=== PATIENT | male | born 1980 | race Caucasian/White ===

== ENCOUNTER 2022-11-21 12:34 | Outpatient (CLI) | payer OTHER, SELFPAY ==
--- NOTE | 2022-11-21 | ECHO_ITS ---
Patient Info Name: Patrick Cervantes Age: 42 years : 1980 Gender: Male Ht: 70 in Wt: 326 lbs BSA: 2.78 m2 HR: 112 bpm BP: 160 / 88 mmHg Heart Rhythm: Sinus Rhythm Technical Quality: Fair Exam Date: 11/21/2022 12:54 PM Exam Location: [facility] Patient Status: Outpatient Admit Date: 11/21/2022 Staff Ordering Physician: Ryley*Yuniel MD Airplane Tester: Radha Scott RDCS Attending Provider: Ryley*Yuniel MD Referring Physician: Amalia GARCIA; Exam Type: CA echo dop color flow w con Study Info Indications R06.02 - Shortness of breath Complete two-dimensional, color flow and Doppler transthoracic echocardiogram is performed with contrast to opacify the left ventricle and to improve the deliniation of the left ventricle endocardial borders. Strain analysis performed. Contrast/Agitated Saline Contrast/Ag. Saline: Definity Amount: 3.00 ml Administered By: Radha Scott RDCS Existing IV Access: Yes IV Access Condition: patent with no signs of infiltration Summary 1. Complete two-dimensional, color flow and Doppler transthoracic echocardiogram is performed with contrast to opacify the left ventricle and to improve the deliniation of the left ventricle endocardial borders. 2. Strain analysis performed. 3. Global longitudinal strain is borderline at -17 %. 4. Left ventricular chamber dimension is normal. 5. Left ventricular systolic function is hyperdynamic, estimated at >70%. 6. There is mildly increased left ventricular wall thickness. 7. The left ventricular diastolic function is grade I diastolic dysfunction. 8. There is mild tricuspid valve regurgitation. Left Ventricle Global longitudinal strain is borderline at -17 %. Left ventricular chamber dimension is normal. Left ventricular systolic function is hyperdynamic, estimated at >70%. There is mildly increased left ventricular wall thickness. The left ventricular diastolic function is grade I diastolic dysfunction. Right Ventricle Right ventricular chamber dimension is normal. Right ventricular systolic function is normal. Left Atria Left atrial chamber dimension is normal. Right Atria Right atrial chamber dimension is normal. Atrial Septum Intact interatrial septum visualized by color flow imaging. Aortic Valve The aortic valve is probable trileaflet. There is no aortic valve stenosis. There is trace aortic valve regurgitation. Pulmonic Valve The pulmonic valve is normal. There is no pulmonic valve stenosis. There is trace pulmonic regurgitation. Mitral Valve The mitral valve has normal leaflets. There is no mitral valve stenosis. There is trace mitral valve regurgitation. Tricuspid Valve The tricuspid valve leaflets are normal. There is no significant tricuspid valve stenosis. There is mild tricuspid valve regurgitation. No pulmonary hypertension, estimated pulmonary arterial systolic pressure is 25 mmHg. Pericardium/Pleural The pericardium appears normal. There is trivial pericardial effusion. Aorta The aortic root size at the sinus of Valsalva is normal. Left Ventricular Outflow Tract Name Value Normal LVOT 2D LVOT Diameter
[2022-11-21] MEDS: PERFLUTREN LIPID MICROSPHERES 1.5 ML VIAL DILUTED TO 10 ML TOTAL VOLUME IV PUSH (13:30)
--- NOTE | 2022-11-21 14:04 | IVDEFINITY ---
Prior to administration of IV Definity the patient was educated on the risks and benefits of the imaging enhancing agent including potential adverse side effects. The patient verbalized understanding. Allergies were verified. No exclusion criteria were identified and at least one of the following inclusion criteria were met: 1) physician request, 2) patient technically difficult to image (per the [place] [employer]ocardi[employer] guidelines of two or more segments not discernable within the apical view), or 3) questionable left ventricular function. ?
== END 2022-11-21 12:35 | disposition home or self-care (01) ==
PROVIDERS: Visit Provider Family Medicine
DX: R06.02 Shortness of breath (principal); R94.31 Abnormal electrocardiogram [ECG] [EKG]; I36.1 Nonrheumatic tricuspid (valve) insufficiency
CPT/HCPCS: C8929; Q9957

== ENCOUNTER 2023-12-06 12:05 | Outpatient (CLI) | payer OTHER, SELFPAY ==
--- NOTE | ~2023-12-06 | MM_ITS ---
EXAMINATION: MM diagnostic keila BI w kwaku HISTORY: Right subareolar breast pain, tenderness TECHNIQUE: MLO and CC 3-D tomosynthesis images of both breasts were performed and synthetic 2-D image s were generated. CAD analysis was submitted and interpreted. COMPARISON: None BREAST PARENCHYMAL COMPOSITION: There are scattered areas of fibroglandular density. FINDINGS: There is bilateral gynecomastia, right greater than left. No suspicious mass, architectural distortion, malignant calcification, skin thickening or retraction of either breast is detected. IMPRESSION: Bilateral gynecomastia, right greater than left, benign BI-RADS Category 2: Benign finding(s). Reviewed, dictated and finalized at location A. TESTING
== END 2023-12-06 12:06 | disposition home or self-care (01) ==
LOC: ANHIMG 12:07
PROVIDERS: PCP Family Medicine Sports Medicine; Visit Provider Family Medicine Sports Medicine
DX: N62 Hypertrophy of breast (principal)
CPT/HCPCS: 77062; 77066; 97110; 97530; G0279

== ENCOUNTER 2023-12-20 10:00 | Outpatient (RCR) | payer OTHER, SELFPAY ==
--- NOTE | 2023-10-04 09:57 | PTOPEVAL1 ---
Assessment and note entered by Penny Harris, PT, DPT Evaluation Information Assessment Status Evaluation Diagnosis low back pain Onset 3+ years Subjective Information Pt reports chronic low back pain, he states his pain starts any time he is on his feet for longer than 5-10 mins. He states it takes him sitting for 15-20 mins to get the pain to go away. He describes the pain as someone twisting and squeezing his spine. He declines a BHAVANI. He states all his pain is localized to the lower back. He declines any pain when sitting. Pt reports that lumbar hyperextension helps relieve his pain. Pt does not work. Reported Pain Level Pain Score 0: Self Report Assessment PT Clinical Summary Patrick presents to therapy today for his initial evaluation with a diagnosis of chronic low back pain. Today he demonstrates decreased active lumbar ROM during functional mobility tasks, decreased core strength, posterior deficits, and decreased functional mobility limited by pain. Skilled therapy services are indicated to improve body awareness, improve movement mechanics, and to improve functional mobility. Oswestry: 17/50, 34% disability Plan of Care Interventions Electrical Stimulation,Gait Training,Hot Pack/Cold Pack,Manual Therapy,Neuro Re-education,Patient/ Caregiver Educati,Therapeutic Activities, Therapeutic Exercise PT Services Indicated Yes Treatment Frequency and 2x/wk for 8 visits Duration These treatments will address the objective and functional deficits as defined above. The patient will be advanced safely and appropriately in order for the patient to progress towards his/her prior level of function. Additional exercises will be introduced and as well as a comprehensive home exercise program upon discharge, if needed, ?to ensure carryover of functional gains achieved in the clinic. This treatment plan has been reviewed and agreement upon by the patient.
--- NOTE | 2023-10-04 09:57 | OPREHPOC ---
Outpatient Therapy Plan of Care This is a Multidisciplinary Plan of Care that may contain components documented by all disciplines (PT, OT, and ST.) PT Problem 1 PT Problem #1 Knowledge Deficit PT Goal 1 Goal Pt to be IND with issued HEP Target Visit 8 PT Problem 2 PT Problem #2 Pain PT Goal 1 Goal Pt to report back pain no greater than 4/10 in the last week. Target Visit 8 PT Goal 2 Goal Pt to report 75% improvement in overall symptoms. Target Visit 8 PT Problem 3 PT Problem #3 Pain PT Goal 1 Goal Pt to tolerate 60 mins of standing prior to needing to sit down. Target Visit 8 PT Goal 2 Goal Pt to tolerate 15 mins of walking prior to needing to sit. Target Visit 8 PT Problem 4 PT Problem #4 Impaired Functional Mobil PT Goal 1 Goal Pt to improve Oswestry score from 17/50 to 10/50. PT Goal 2 Goal Pt to demonstrate functional lift and carry with 30lb. Target Visit 8
--- NOTE | 2023-10-11 12:02 | PCPTNOTE ---
Patient called to cancel this date due to illness.
--- NOTE | 2023-10-15 08:28 | PCPTNOTE ---
Patient did not show up for scheduled appointment this date. Called and LVM to follow up.
--- NOTE | 2023-10-23 09:52 | PCPTNOTE ---
Patient canceled due to upset stomach.
--- NOTE | 2023-11-01 09:53 | PTOPPROG ---
Assessment and note entered by Penny Harris, PT, DPT Evaluation Information Assessment Status Progress Diagnosis low back pain Onset 3+ years Subjective Information Pt feels like he feels like his pain has improved a little bit. He states it feels like he can do a little bit more for a little bit longer without needing to sit down. Pt reports he can stand no longer than 15 minutes and walk for no longer than 10 minutes before he needs to sit down. He reports good compliance with his HEP. Assessment PT Clinical Summary Patrick presents to therapy today for his progress report following 7 visits of skilled therapy to treat his a diagnosis of chronic low back pain. Today he demonstrates improved but still limited active ROM and improved body mechanics. His functional standing and walking capacity is still severely limited by pain. Continuation of skilled therapy services are indicated to improve body awareness, improve movement mechanics, to manage pain, and to improve functional mobility. Oswestry: 20/50, 40% disability Plan of Care Interventions Electrical Stimulation,Gait Training,Hot Pack/Cold Pack,Manual Therapy,Neuro Re-education,Patient/ Caregiver Educati,Therapeutic Activities, Therapeutic Exercise PT Services Indicated Yes Treatment Frequency and 1x/wk for 8 visits Duration These treatments will address the objective and functional deficits as defined above. The patient will be advanced safely and appropriately in order for the patient to progress towards his/her prior level of function. Additional exercises will be introduced and as well as a comprehensive home exercise program upon discharge, if needed, ?to ensure carryover of functional gains achieved in the clinic. This treatment plan has been reviewed and agreement upon by the patient.
--- NOTE | 2023-11-15 07:57 | PCPTNOTE ---
Patient called & cancelled scheduled appointment this date due to having multiple appointments today.
--- NOTE | 2023-12-20 10:50 | PTOPDC ---
Assessment and note entered by Penny Harris, PT, DPT Evaluation Information Assessment Status Discharge Diagnosis low back pain Onset 3+ years Subjective Information Pt states his back has been pretty sore in the last couple of days, states it was even worse earlier this week. He reports a 8/10 at the worst. He reports little to no change with therapy since beginning. Reported Pain Level Pain Score 3: Self Report Assessment PT Clinical Summary Patrick presents to therapy today for his progress report following 12 visits of skilled therapy to treat his a diagnosis of chronic low back pain. Today he demonstrates continued decreased lumbar mobility. He demonstrates an improved understanding of lifting and body mechanics but has not expericed a relive in his pain since starting therapy. D/t lack of insurance approval and poor therapy progress, pt will be discharged at this time. He is following up with his provider next week regarding next steps. Oswestry: , 36% disability
== END 2023-12-20 11:35 | disposition home or self-care (01) ==
LOC: ANHGOSHPT 10:00
PROVIDERS: Visit Provider Family Medicine Sports Medicine
DX: M54.50 Low back pain, unspecified (principal); G89.29 Other chronic pain
CPT/HCPCS: 97014; 97110; 97140; 97161; 97530; 99199; G0283

== ENCOUNTER 2024-03-27 10:43 | Outpatient (CLI) | payer OTHER, SELFPAY ==
--- NOTE | ~2024-03-27 | MR_ITS ---
EXAMINATION: MR lumbar spine wo con DATE: 03/27/2024 11:40 INDICATION: Chronic midline low back pain TECHNIQUE: Magnetic resonance imaging (MRI) of the lumbar spine was performed without intravenous con trast. Sequences included sagittal T2-weighted FSE, sagittal T2-weighted FS FSE, sagittal T1-weighted FSE, and axial T2-weighted FSE. COMPARISON: None FINDINGS: 4 mm retrolisthesis L4 on L5. Vertebral body heights are normal. Normal marrow signal. Disc heights are normal. The conus medullaris terminates at T12-L1. There is normal signal in the caudal spinal co rd. Diffuse lumbar epidural lipomatosis with caudal predominance. Paravertebral soft tissues are unre markable. The following disc levels are specifically discussed: T12-L1: The disc does not extend beyond the endplate margin. There is mild bilateral facet joint oste oarthritis. There is no neural foraminal stenosis. There is no central canal stenosis. L1-L2: The disc does not extend beyond the endplate margin. There is mild bilateral facet joint osteo arthritis. There is no neural foraminal stenosis. There is no central canal stenosis. L2-L3: The disc does not extend beyond the endplate margin. There is mild right and minimal left face t joint osteoarthritis. There is no neural foraminal stenosis. There is mild central canal stenosis d ue to epidural lipomatosis. L3-L4: The disc does not extend beyond the endplate margin. There is mild bilateral facet joint osteo arthritis. There is no neural foraminal stenosis. There is moderate central canal stenosis due to epi dural lipomatosis. L4-L5: Disc is mildly bulging and does not extend beyond the more posterior L4 endplate margin. There is minimal facet joint osteoarthritis with small amount of fluid in the currently widened joint spac e related to the mild retrolisthesis of L4 on L5. There is mild bilateral neural foraminal stenosis. There is severe central canal stenosis due primarily to epidural lipomatosis with effacement of the C SF signal surrounding the nerve roots in the thecal sac. L5-S1: Disc is minimally bulging with superimposed right foraminal zone disc protrusion. There is mil d bilateral facet joint osteoarthritis. There is mild left and mild to moderate right neural foramina l stenosis. There is severe central canal stenosis resulting from epidural lipomatosis with effacemen t of the CSF signal surrounding the nerve roots in the thecal sac. IMPRESSION: 1. Mild lumbar spondylosis with severe central canal stenosis at the lower lumbar spine resulting rekha tammie from prominent epidural lipomatosis. Reviewed, dictated and finalized at location B. IMPRESSION: 1. Mild lumbar spondylosis with severe central canal stenosis at the lower lumb ar spine resulting primarily from prominent epidural lipomatosis.
== END 2024-03-27 10:44 | disposition home or self-care (01) ==
PROVIDERS: PCP Family Medicine Sports Medicine; Visit Provider Family Medicine Sports Medicine
DX: E66.01 Morbid (severe) obesity due to excess calories (principal); Z68.42 Body mass index [BMI] 45.0-49.9, adult; G89.29 Other chronic pain; M54.50 Low back pain, unspecified; M43.06 Spondylolysis, lumbar region
CPT/HCPCS: 72148

== ENCOUNTER 2025-05-30 09:53 | Emergency (ER) | payer OTHER, SELFPAY ==
[2025-05-30] VITALS (10 sets, daily range): BP systolic 133–161; BP diastolic 74–118; PULSE 85–101; RESP 16–27; TEMP 36.4; O2SAT 96–100
--- NOTE | ~2025-05-30 | XR_ITS ---
EXAMINATION: XR chest 2V 05/30/2025 11:16 INDICATION: Shortness of breath PROCEDURE: 2 view chest COMPARISON: No prior studies for comparison. FINDINGS: The lungs are clear. The cardiomediastinal silhouette is within normal limits. There are no pleural effusions. There is no pneumothorax suspected. IMPRESSION: 1: NO ACUTE CARDIOPULMONARY DISEASE. Reviewed, dictated and finalized at location O.
--- OUTSIDE RECORDS SUMMARY | 2025-05-30 09:55 | XMS_ITS | Encounter Summary ---
Author Organization [facility] Address [address] [place] [address] Phone Care Team Providers Care Director Of Quality Improvement Name Role Phone Jordyn Hallman NP Primary Care Provider [phone] Reason for Visit * Reason Onset Date Comments Test Results 05/03/2025 Encounter Details Date Type Department Care Team (Late st Contact Info) Description 05/03/2025 Results Follow-Up [facility] Medicine Gastroenterology [address] [facility] [place] [place] 2nd [address] [place] [address] Jose Velazco MD [address] [place] [address] Surgical pathology Social History Tobacco Use Types Packs/Day Years Used Date Smoking Tobacco: Never Passive Smoke Exposure: Never Smokeless Tobacco: Never AUDIT-C Answer Date Recorded Q1: How often do you have a drink containing alcohol? Never 04/30/2025 Q2: How many drinks containi ng alcohol do you have on a typical day when you are drinking? Patient does not drink Q3: How often do you have si x or more drinks on one occasion? Never 04/30/2025 PHQ-2 Answer Date Recorded PHQ-2 Total Score (If total score is 3 or more points, staff should administer the PHQ-9) 0 02/15/2025 PHQ-9 Answer Date Recorded PHQ-9 Total Score 5 05/18/2024 Personal Safety Answer Date Recorded Have you ever been in or are you currently in a harmful physical or emotional relationship or is someone making you feel afraid or unsafe? Denies 04/30/2025 Sex and Gender Information Value Date Recorded Sex Assigned at Not on file Legal Sex Male 1:32 PM FRYLINE ATTENDANT Gender Identity Male 08/19/2023 8:03 AM FRYLINE ATTENDANT Sexual Orientation Straight 08/19/2023 8: 03 AM FRYLINE ATTENDANT documented as of this encounter Plan of Treatment Not on file documented as of this encounter Goals Goal Patient Goal Type Associated Problems Recent Progress Patient-Stated? Author CCM Chronic Pain Care Plan Chronic Care Management On track(2024 10:08 AM FRYLINE ATTENDANT) No Josiane Sharp, RN Note: Problem: Chronic Pain Goals: 1. Minimize further functional decline 2. Maximize quality of life 3. Control pain Strategies: - Activity/exercise program recommendation - Conservative stepwise pain medicine strategy with multi-disciplinary approach - Recommend healthy lifestyle strategies and compensatory methods as needed documented as of this encounter Visit Diagnoses Not on filedocumented in this encounter Care Teams Director Of Quality Improvement Relationship Specialty Start Date End Date Jordyn Hallman NP [address] [address] PCP - General Family Medicine 03/10/25 documented as of this encounter
--- NOTE | 2025-05-30 10:43 | ED_ITS ---
HPI - General Adult General Chief complaint: Shortness of Breath/Dyspnea Stated complaint: sob Time Seen by Provider: 05/30/25 10:23 History of Present Illness HPI narrative: Patient is a 45-year-old male who presents ER with concerns for dyspnea. Patient developed a cough and cold approximately 1 week ago. His family has improved but he is not. He lost his voice and has difficulty speaking. He has dyspnea with walking. Has sinus congestion as well as postnasal drip and occasional productive cough. No chest pain or chest pressure. No fevers or chills. He has been taking Mucinex without improvement. Related Data Allergies Allergy/AdvReac Type Severity Reaction Status Date / Time Shrimp Allergy Unknown Unknown Uncoded 05/30/25 10:01 Review of Systems 2 Review of Systems: All systems reviewed & are unremarkable except as noted in HPI and below Constitutional: Constitutional: Reports no additional constitutional complaints ENT: Reports system reviewed and no additional complaints, except as documented Cardiovascular: Cardiovascular: Reports no additional cardiovascular complaints Respiratory: Respiratory: Reports no additional respiratory complaints Exam 2 Narrative: GENERAL: Well-appearing, morbidly obese, and in no acute distress. HEAD: Normocephalic, atraumatic. EYES: PERRL and EOMI. ENT: Mucous membranes moist. Normal appearing posterior oropharynx. CHEST: Clear to auscultation. No respiratory distress. HEART: Regular rate and rhythm. Normal peripheral pulses. EXTREMITIES: Normal range of motion. No edema. SKIN: Warm, dry, no rash. NEURO: Alert and oriented x3. PSYCH: Normal mood and affect. Course Course Emergency Course: Unremarkable evaluation, discharged home with Flonase. Continue Mucinex. Vital Signs Vital signs: Vital Signs Temperature 97.6 F 05/30/25 09:58 Pulse Rate 101 H 05/30/25 09:58 Respiratory Rate 21 H 05/30/25 09:58 Blood Pressure 135/118 H 05/30/25 09:58 Pulse Oximetry 99 05/30/25 09:58 Oxygen Delivery Room Air 05/30/25 09:58 Temperature 97.6 F 05/30/25 09:58 Pulse Rate 94 05/30/25 13:40 Respiratory Rate 18 05/30/25 13:40 Blood Pressure 161/92 H 05/30/25 13:40 Pulse Oximetry 99 05/30/25 13:40 Oxygen Delivery Room Air 05/30/25 11:33 Medical Decision Making Vital Signs Vital Signs: Vital Signs Temperature 97.6 F 05/30/25 09:58 Pulse Rate 101 H 05/30/25 09:58 Respiratory Rate 21 H 05/30/25 09:58 Blood Pressure 135/118 H 05/30/25 09:58 Pulse Oximetry 99 05/30/25 09:58 Oxygen Delivery Room Air 05/30/25 09:58 Temperature 97.6 F 05/30/25 09:58 Pulse Rate 94 05/30/25 13:40 Respiratory Rate 18 05/30/25 13:40 Blood Pressure 161/92 H 05/30/25 13:40 Pulse Oximetry 99 05/30/25 13:40 Oxygen Delivery Room Air 05/30/25 11:33 Lab Data 05/30/25 11:01 05/30/25 11:01 Labs: Lab Results 05/30/25 Range/Units 11:01 WBC 7.4 (4.5-10.0) K/mm3 RBC 5.57 (4.6-6.20) M/mm3 Hgb 15.6 (14.0-18.0) g/dL Hct 48.4 (42.0-52.0) % MCV 86.9 (80-100) fl MCH 28.0 (26-34) pg MCHC 32.2 (32-36) g/dl RDW 13.7 (11.5-14.5) % Plt Count 322 (150-375) k/mm3 MPV 9.9 (7.4-10.4) fl Immature Gran % (Auto) 0.1 (0-0.5) % Neut % (Auto) 64.8 (45.5-73.1) % Lymph % (Auto) 23.3 (18.3-44.2) % [place] % (Auto) 6.0 (2.6-8.5) % Eos % (Auto) 5.0 H (0-4.4) % Baso % (Auto) 0.8 (0.2-1.2) % Lymph # (Auto) 1.71 (0.9-3.2) K/mm3 [place] # (Auto) 0.4 (0.1-0.6) K/mm3 Eos # (Auto) 0.4 H (0-0.3) K/mm3 Baso # (Auto) 0.1 (0.0-0.1) K/mm3 Abs Immat Gran (auto) 0.01 (0.00-0.031) K/mm3 Absolute Neuts (auto) 4.8 (1.3-6.7) K/mm3 Absolute Nucleated RBC 0.000 (0.0-0.012) K/mm3 Nucleated RBC % 0.0 (0.0-0.2) % Sodium 138 (137-145) mmol/L Potassium 4.0 (3.4-5.0) mmol/L Chloride 102 (98-107) mmol/L Carbon Dioxide 27 (22-30) mmol/L Anion Gap 9 (4-12) mmol/L BUN 12 (9-20) mg/dL Creatinine 1.04 (0.7-1.3) mg/dL Estim Creat Clear Calc 121 ml/min Estimated GFR > 60 (59 - ) Glucose 105 (65-110) mg/dL Calcium 9.0 (8.4-10.2) mg/dL Total Bilirubin 0.7 (0.2-1.3) mg/dL AST 40 (17-59) U/L ALT 47 (6-50) U/L Alkaline Phosphatase 63 (38-126) U/L Total Protein 7.8 (6.3-8.2) g/dL Albumin 4.4 (3.5-5.1) g/dL Influenza A (RT-PCR) Negative (Negative) Influenza B (RT-PCR) Negative (Negative) RSV (RT-PCR) Negative (Negative) SARS-CoV-2 RNA (RT-PCR) Negative (Negative) Imaging Data Radiologist's impression: ITS Impressions Chest X-Ray 05/30/25 11:25 IMPRESSION: 1: NO ACUTE CARDIOPULMONARY DISEASE. Discharge Plan Discharge Clinical Impression: URI (upper respiratory infection) Patient Disposition: Home Condition: Stable Instructions: Upper Respiratory Infection (ED) Additional Instructions: As discussed you have a viral illness. Unfortunately there are no specific medications we can give you to make the illness end faster. Antibiotics do not work for viral illnesses. However, you can take Acetaminophen or Ibuprofen to help with fevers and pain. Stay well hydrated and rested. Return to the emergency department if your fevers and chills continue to worse after 5 days, if you develop worsening cough with thick sputum, or are unable to stay hydrated. Contact your primary care provider in the next few days for a re-evaluation and to make sure your symptoms are improving. Patient Language: Kiswahili Prescriptions: New fluticasone propionate [Flonase Allergy Relief] 50 mcg/actuation spray,suspension 1 spray intranasal BID Qty: 16 0RF Rx Instructions: administer into each nostril Cepacol Sore Throat (minnie-men) 15-3.6 mg lozenge 1 clarence mucous membrane Q2-4H PRN (Reason: sore throat) Qty: 16 0RF Follow-up/Referrals: Jaun,Char Pablo MD [Primary Care Provider, Unknown] - 1 Week
[2025-05-30 11:14] LABS: Hematocrit 48.4 % (42.0-52.0); Hemoglobin 15.6 g/dL (14.0-18.0); Immature Granulocyte Percent A 0.1 % (0-0.5); Lymphocytes Absolute Auto 1.71 K/mm3 (0.9-3.2); Mean Corpuscular HGB Conc 32.2 g/dl (32-36); Mean Corpuscular Hemoglobin 28.0 pg (26-34); Mean Corpuscular Volume 86.9 fl (80-100); Nucleated Red Blood Cells Absolute Auto 0.000 K/mm3 (0.0-0.012); Nucleated Red Blood Cells Perc 0.0 % (0.0-0.2); Platelet Count Result 322 k/mm3 (150-375); Red Blood Count 5.57 M/mm3 (4.6-6.20); White Blood Count 7.4 K/mm3 (4.5-10.0)
[2025-05-30 11:34] LABS: Alanine Aminotransferase 47 U/L (6-50); Albumin Level 4.4 g/dL (3.5-5.1); Alkaline Phosphatase 63 U/L (38-126); Anion Gap 9 mmol/L (4-12); Aspartate Amino Transferase 40 U/L (17-59); Bilirubin,Total 0.7 mg/dL (0.2-1.3); Blood Urea Nitrogen 12 mg/dL (9-20); Calcium 9.0 mg/dL (8.4-10.2); Carbon Dioxide 27 mmol/L (22-30); Chloride 102 mmol/L (98-107); Estimated CRCL calculation 121 ml/min; Estimated Glomerular Filt Rate > 60; Glucose 105 mg/dL (65-110); Potassium 4.0 mmol/L (3.4-5.0); Sodium 138 mmol/L (137-145); Total Protein 7.8 g/dL (6.3-8.2)
[2025-05-30 11:51] LABS: Influenza A QL RT-PCR Negative (Negative); Influenza B QL RT-PCR Negative (Negative); RSV RNA, RT-PCR Negative (Negative); SARS-CoV-2 RNA PCR Negative (Negative)
== END 2025-05-30 14:14 | disposition home or self-care (01) ==
PROVIDERS: Emergency Provider Emergency Medicine; PCP Family Medicine Sports Medicine
DX: J06.9 Acute upper respiratory infection, unspecified (principal); R06.02 Shortness of breath; Z20.822 Contact with and (suspected) exposure to COVID-19
CPT/HCPCS: 36415; 71046; 80053; 85025; 87637; 99283